=== PATIENT | male | born 1930 | race Caucasian/White ===

== ENCOUNTER → 2016-10-12 | Outpatient (CLI) | payer MEDICARE, OTHER | END | disposition home or self-care (01) | LOC: PCVCCLINIC 12:00 | PROVIDERS: ATTEND Internal Medicine | DX: I44.0 Atrioventricular block, first degree (principal); I10 Essential (primary) hypertension; I77.89 Other specified disorders of arteries and arterioles; E78.5 Hyperlipidemia, unspecified; F17.200 Nicotine dependence, unspecified, uncomplicated; G40.909 Epilepsy, unspecified, not intractable, without status epilepticus; Z79.82 Long term (current) use of aspirin; Z88.6 Allergy status to analgesic agent | CPT/HCPCS: 80061; G0463 ==

== ENCOUNTER → 2018-04-09 | Outpatient (CLI) | payer MEDICARE, OTHER | END | disposition home or self-care (01) | LOC: PCVCCLINIC 14:23 | PROVIDERS: ATTEND Internal Medicine | DX: E78.5 Hyperlipidemia, unspecified (principal); I10 Essential (primary) hypertension | CPT/HCPCS: 36415; 80061 ==

== ENCOUNTER → 2018-04-26 | Outpatient (CLI) | payer MEDICARE, OTHER ==
[~2018-04-26] MED LIST: AMINOPHYLLINE 250 MG/10 ML VIAL. ONE; REGADENOSON 0.4 MG/5 ML DISP.SYRIN. IV ONE
--- NOTE | 2018-04-26 10:11 | PCVCIMAG ---
APPROVED REPORT Study performed: 04/26/2018 08:04:29 EXAM: Comprehensive 2D, Doppler, and color-flow Echocardiogram Patient Location: Echo lab Status: routine BSA: 1.71 HR: 52 bpmBP: 158/70 mmHg Rhythm: LBBB Other Information Study Quality: Good Risk Factors: Cardiac Risk Factors: HTN, Hyperlipidemia Indications Hypertension/HDD 2D Dimensions IVSd: 11.85 (7-11mm)LVOT Diam: 20.00 (18-24mm) LVDd: 40.33 mm PWd: 12.31 (7-11mm)Ascending Ao: 33.10 (22-36mm) LVDs: 28.36 (25-40mm) Left Atrium: 40.35 (27-40mm) Aortic Root: 28.42 mm LV Single Plane 4CH: 63.42 % LV Single Plane 2CH: 71.07 % Biplane EF: 68.9 % Volumes Left Atrial Volume (Systole) Single Plane 4CH: 70.83 mLSingle Plane 2CH: 75.16 mL LA ESV Index: 43.00 mL/m2 Aortic Valve AoV Peak Crow.: 1.52 m/s AO Peak Gr.: 9.19 mmHgLVOT Max P.92 mmHg LVOT Max V: 1.11 m/s PRIYANKA Vmax: 2.23 cm2 Mitral Valve E/A Ratio: 0.8 MV Decel. Time: 258.44 ms MV E Max Crow.: 0.73 m/s MV A Crow.: 0.88 m/s IVRT: 51.90 ms TDI E/Lateral E': 14.60E/Medial E': 18.25 Medial E' Crow.: 0.04 m/s Lateral E' Crow.: 0.05 m/s Pulmonary Valve PV Peak Crow.: 1.09 m/sPV Peak Gr.: 4.79 mmHg Pulmonary Vein P Vein S: 0.66 m/sP Vein A: 0.32 m/s P Vein D: 0.42 m/sP Vein A Dur.: 134.9 msec P Vein S/D Ratio: 1.57 Tricuspid Valve TR Peak Crow.: 2.70 m/sRAP Estimate: 7.00 mmHg TR Peak Gr.: 29.22 mmHg PA Pressure: 36.00 mmHg Left Ventricle The left ventricle is normal size. There is normal LV segmental wall motion. Mild concentric left ventricular hypertrophy. Left ventricular systolic function is normal. The left ventricular ejection fraction is within the normal range. LVEF is 65-70%. Mild diastolic dysfunction is present (impaired relaxation pattern). Right Ventricle The right ventricle is normal size. The right ventricular systolic function is normal. Atria Left atrium is moderately dilated. Right atrium is mildly dilated. Aortic Valve The aortic valve is normal in structure. No aortic regurgitation is present. There is no aortic valvular stenosis. Mitral Valve The mitral valve is normal in structure. Mild mitral regurgitation. No evidence of mitral valve stenosis. Tricuspid Valve The tricuspid valve is normal in structure. Mild tricuspid regurgitation. Pulmonary artery pressure is 36 mmHg. Pulmonic Valve The pulmonary valve is normal in structure. There is no pulmonic valvular regurgitation. Great Vessels The aortic root is normal in size. IVC is normal in size and collapses >50% with inspiration. Pericardium There is no pericardial effusion. <Conclusion> The left ventricle is normal size. LVEF is 65-70%. Left atrium is moderately dilated. Right atrium is mildly dilated. The aortic valve is normal in structure. The mitral valve is normal in structure. Mild mitral regurgitation. The tricuspid valve is normal in structure. Mild tricuspid regurgitation. Pulmonary artery pressure is 36 mmHg. The pulmonary valve is normal in structure. There is no pericardial effusion.
--- NOTE | 2018-04-28 17:49 | PCVCIMAG ---
APPROVED REPORT Imaging Protocol: Rest Tc-99m/Stress Tc-99m 1 day Study performed: 04/26/2018 09:39:25 Indication: Abnormal EKG, Hx of LBBB Patient Location: Out-Patient Stress Nurse: Emeli Alonso RN, Baetriz Vuong RN [place] Tech:Zhanna LUIS BoyerMT Ht: 5 ft 3 in Wt: 150 lbs BSA: 1.71 m2 HR: 48 bpm BP: 152/69 mmHg BMI: 26.56 Rhythm: Sinus Bradycardia Medical History Medical History: Hyperlipidemia, HTN Medications: ASA, Lisinopril, Procardia, Locasamide Allergies: Codeine Cardiac Risk Factors: Age Pretest Chest Pain Characteristics: No chest pain Exercise History: Sedentary Physical Disabilities: Back Resting Data Rest SPECT myocardial perfusion imaging was performed in supine position 45 minutes following the intravenous injection of 10.8 mCi of Tc-99m Sestamibi. Time of rest injection: 0900 Administration Route: IV Administration Site: Right AC Pharmacologic Stress Pharmacologic stress test was performed by injecting Regadenoson 0.4 mg IV push over 10-15 seconds immediately followed by the intravenous injection of 34.9 mCi of Tc-99m Sestamibi. Time of stress injection: 1030 Date: 04/26/2018 Administration Route: IV Administration Site: Right AC Gated Stress SPECT was performed 45 minutes after stress injection. The images were gated to evaluate regional wall motion and calculate left ventricular ejection fraction. Stress Test Details Stress Test: Pharmacologic stress testing performed using 0.4 mg of regadenoson per 5 mL given IV over 10 seconds. Reason for pharmacologic stress test: Hx of LBBB, back issues. Reversal agent Aminophyline 75 mg, given intravenously for headache. HRMax Heart Rate (APMHR): 133 bpm Resting HR: 48 bpmTarget HR (85% APMHR): 113 bpm Max HR Achieved: 62 bpm % of APMHR: 46 Recovery HR: 54 bpm BP Resting BP: 152/69 mmHg Max BP: 164/71 mmHg Recovery BP: 146/67 mmHg ECG Resting ECG: Sinus Bradycardia Stress ECG: Sinus Rhythm Recovery ECG: Sinus Bradycardia Clinical Reason for Termination: Completed protocol Stress Symptoms: Headache Exercise duration: 0 min 55 sec Symptoms resolved during recovery with aminophylline. Stress ECG Conclusion 1. Adequate response to intravenous Lexiscan 2. Inadequate heart rate for ECG diagnosis Study Data Post stress, the left ventricular ejection was 75%.. SSS: 2 SRS: 4 SDS: 1 TID = 1.11. Perfusion There is a small area of moderately reduced uptake in the apical segment of the anterior wall which is seen on the stress images as well as the resting images. This area thickens and moves normally and is most consistent with attenuation artifact. Wall Motion Normal left ventricular wall motion. Nuclear Conclusion ECG Findings: non-diagnostic Clinical Findings: negative for ischemia Nuclear Findings: negative for ischemia Exercise Capacity: not assessed Left Ventricular Function: normal 1. Low risk study <Conclusion> 1. Adequate response to intravenous Lexiscan 2. Inadequate heart rate for ECG diagnosis
== END | disposition home or self-care (01) ==
LOC: PCVCIMAG 11:51
PROVIDERS: ATTEND Internal Medicine
DX: I08.1 Rheumatic disorders of both mitral and tricuspid valves (principal); I10 Essential (primary) hypertension; E78.5 Hyperlipidemia, unspecified; R94.31 Abnormal electrocardiogram [ECG] [EKG]
CPT/HCPCS: 78452; 93017; 93306; A9500; J0280; J2785